=== PATIENT | female | born 2000 | race Caucasian/White ===

== ENCOUNTER 2022-03-29 17:13 | Emergency (ER) | payer OTHER, MEDICAID, SELFPAY ==
[2022-03-29 17:50] VITALS: BP 136/94; PULSE 98; RESP 18; TEMP 37.1; O2SAT 98; BMI 28.3
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
== END 2022-03-30 00:13 | disposition home or self-care (01) ==
PROVIDERS: Emergency Provider Internal Medicine
DX: Z04.1 Encounter for examination and observation following transport accident (principal)
CPT/HCPCS: 99282; 99283